=== PATIENT | female | born 1990 | race Caucasian/White ===

== ENCOUNTER 2018-03-23 20:08 | Emergency (ER) | payer MEDICAID ==
[2018-03-23 20:21] VITALS: TEMP 98.8
[2018-03-23] MEDS ORDERED: Sodium Chloride 0.9% 1,000 ML ONE (20:39)
--- NOTE | 2018-03-23 20:47 | C.PDOC ---
History Of Present Illness 27 year old female who is 3 months presents to the ER with a complaint of dysuria and suprapubic discomfort that began earlier today, now with left flank pain. Patient states she feels warm but has not had any fever. She reports her urine today was dark and cloudy with a foul odor. Denies nausea, vomiting, vaginal bleeding, or vaginal discharge. Time Seen by Provider: 03/23/18 20:25 Chief Complaint (Nursing): Female Genitourinary History Per: Patient History/Exam Limitations: no limitations Onset/Duration Of Symptoms: Hrs Current Symptoms Are (Timing): Still Present Quality Of Discomfort: Burning Associated Symptoms: Urinary Symptoms. denies: Nausea, Vomiting, Other ( vaginal discharge) Alleviating Factors: None Recent travel outside of the [place]: No Abnormal Vaginal Bleeding: No Past Medical History Reviewed: Historical Data, Nursing Documentation, Vital Signs Vital Signs: Last Vital Signs Temp 98.8 F 03/23/18 23:11 Pulse 84 03/23/18 23:11 Resp 14 03/23/18 23:11 BP 100/63 03/23/18 23:11 Pulse Ox 96 03/23/18 23:48 - Medical History PMH: Denies: Chronic Kidney Disease Family History: States: Unknown Family Hx - Social History Hx Tobacco Use: No Hx Alcohol Use: No Hx Substance Use: No - Immunization History Hx Tetanus Toxoid Vaccination: No Hx Influenza Vaccination: No Review Of Systems Constitutional: Negative for: Fever Gastrointestinal: Negative for: Nausea, Vomiting Genitourinary: Positive for: Dysuria, Other (Suprapubic discomfort) Musculoskeletal: Positive for: Back Pain (Left flank) Physical Exam - Physical Exam Appears: Non-toxic Skin: Normal Color, Warm, Dry Head: Atraumatic, Normacephalic Eye(s): bilateral: Normal Inspection Oral Mucosa: Moist Chest: Symmetrical, No Tenderness Cardiovascular: Rhythm Regular Respiratory: Normal Breath Sounds, No Rales, No Rhonchi, No Wheezing Gastrointestinal/Abdominal: Soft, Tenderness (Mild suprapubic discomfort), No Guarding, No Rebound Back: No CVA Tenderness Neurological/Psych: Oriented x3, Normal Speech ED Course And Treatment - Laboratory Results Result Diagrams: 03/23/18 20:48 03/23/18 20:48 Lab Interpretation: No Acute Changes O2 Sat by Pulse Oximetry: 96 (Room air) Pulse Ox Interpretation: Normal - CT Scan/US US Other Rad Studies (CT/US): Read By Radiologist, Radiology Report Reviewed CT/US Interpretation: EXAM: US After First Trimester, Transabdominal. CLINICAL HISTORY: 27 years old, female; Pain; complicated by abdominal or pelvic pain; Generalized. abdominal pain; Second trimester; Gestational age or lmp: [id number]; ; Additional info: Abd. pain. TECHNIQUE: Real-time transabdominal obstetrical ultrasound of the maternal pelvis and a second or third. trimester with image documentation. COMPARISON: No relevant prior studies available. FINDINGS: Fetus: Single live intrauterine gestation. Heart rate: heart rate of 168 beats per minute. Presentation: Breech. Placenta: Anterior placenta. No placenta previa or abruption. Amniotic fluid: Normal. Anatomy: No gross anomaly is appreciated. BIOMETRICS. Gestational age: Estimated gestational age of 19 weeks 2 days by measurements. KULWANT: 08/15/2018 by ultrasound. EFW: 264 g. MATERNAL: Uterus: Unremarkable. No myometrial mass. Cervix: No cervical dilatation or effacement. Free fluid: No free fluid. IMPRESSION: 1. Single live intrauterine gestation. Progress Note: Blood work, urinalysis, and US ordered. Reevaluation Time: 23:50 Reassessment Condition: Improved (Patient remains comfortable in ED.) Disposition Counseled Patient/Family Regarding: Studies Performed, Diagnosis, Need For Followup, Rx Given - Disposition Referrals: [facility] [Outside] Disposition: HOME/ ROUTINE Disposition Time: 23:51 Condition: STABLE Prescriptions: Nitrofurantoin Macrocrystals [Macrobid] 1 cap PO BID #14 cap Instructions: Urinary Tract Infections in Adults Forms: [facility] ([place]i) - Clinical Impression Clinical Impression: UTI (urinary tract infection) during - Scribe Statement The provider has reviewed the documentation as recorded by the Scribe Yuri Wilson All medical record entries made by the Scribe were at my direction and personally dictated by me. I have reviewed the chart and agree that the record accurately reflects my personal performance of the history, physical exam, medical decision making, and the department course for this patient. I have also personally directed, reviewed, and agree with the discharge instructions and disposition.
[2018-03-23 20:51] LABS: BASO % 0.4 % (0.0-2.0); EOS # 0.1 K/uL (0.0-0.7); LYMPH # 1.3 K/uL (1.0-4.3); LYMPH % 11.7 % (20.0-40.0); MEAN CELL VOLUME 89.8 fL (81.0-99.0); MEAN CORPUSCULAR HEMOGLOBIN 30.9 pg (27.0-31.0); MEAN CORPUSCULAR HGB CONC 34.4 g/dL (33.0-37.0); MEAN PLATELET VOLUME 10.2 fL (7.2-11.7); MONO # 0.6 K/uL (0.0-0.8); MONO % 5.8 % (0.0-10.0); NEUT # 8.7 K/uL (1.8-7.0); NEUT % 81.1 % (50.0-75.0); RBC 3.9 Mil/uL (3.80-5.20); RED CELL DISTRIBUTION WIDTH 12.6 % (11.5-14.5); WHITE BLOOD COUNT 10.8 K/uL (4.8-10.8)
[2018-03-23 20:54] LABS: SQUAMOUS EPITHIAL 2 /hpf (0-5); URINE BACTERIA RARE (<OCC); URINE BILIRUBIN NEGATIVE (NEGATIVE); URINE BLOOD NEGATIVE (NEGATIVE); URINE CLARITY Clear (Clear); URINE COLOR Yellow (YELLOW); URINE GLUCOSE (UA) NORMAL (Normal); URINE LEUKOCYTE ESTERASE 1+ Leu/uL (Negative); URINE PROTEIN NEGATIVE (NEGATIVE); URINE UROBILINOGEN NORMAL mg/dL (0.2-1.0)
[2018-03-23 21:10] LABS: ALB/GLOB RATIO 1.5 (1.0-2.1); ALBUMIN 4.3 g/dL (3.5-5.0); ALT/SGPT 66 U/L (9-52); AST/SGOT 37 U/L (14-36); BLOOD UREA NITROGEN 2 mg/dL (7-17); CALCIUM 9.4 mg/dl (8.6-10.4); GFR AFRICAN-AMERICAN > 60; GFR NON-AFRICAN AMERICAN > 60
[2018-03-23 23:11] VITALS: BP 100/63; PULSE 84; RESP 14
[2018-03-23 23:49] VITALS: O2SAT 96
--- NOTE | 2018-03-24 13:47 | US ---
Date of service: 03/23/2018 PROCEDURE: OB Pelvic Ultrasound HISTORY: abd pain LMP: 11/02/2017 suggesting estimated gestational age of 20 weeks 2 days currently. COMPARISON: None available. FINDINGS: UTERUS: Gestational sac: A single viable intrauterine gestation is identified in breech lie with an anterior fundal placenta and no evidence of placental abruption or previa. cardiac tears recorded 160 beats per minute indicating viability. Estimated gestational age by ultrasound biometry is 19 weeks 2 days which is concordant with LMP derived dates. The following mean parameters were obtained: Biparietal diameter 4.6 cm corresponds to 19 weeks 6 days. Head circumference 17.1 cm corresponds to 19 weeks 5 days. Abdominal circumference 13.9 cm corresponds 19 weeks 2 days. Femur length 2.7 cm correspond 18 weeks 2 days. HC/AC ratio was 1.23 which is in the upper limits of normal range. Estimated weight is 264.33 g or 9 oz. Estimated date of delivery 08/15/2018. A limited anatomical survey was performed identified the urinary bladder, a normal-appearing abdominal umbilical cord insertion, three-vessel umbilical cord, and no prominent hydronephrosis. For chamber heart images not submitted and the spine is not adequately capture due to lie. No images of the kidneys is submitted. CERVIX: Measures 3.3 cm. Long and closed. No cervical abnormality seen. RIGHT OVARY: Not identified. LEFT OVARY: Not identified. FREE FLUID: None. OTHER FINDINGS: None. IMPRESSION: A single viable intrauterine gestation is identified in breech lie with an average ultrasonic age of 19 weeks 2 days which is concordant with LMP derived dates of 20 weeks 2 days. cardiac activity 1 6 0 beats per minute. No placental abruption or previa. A very limited anatomical survey was performed with a proper survey available electively on follow-up ultrasound if clinically warranted.
== END 2018-03-24 00:10 | disposition home or self-care (01) ==
LOC: C.ER 20:08
DX: O23.42 Unspecified infection of urinary tract in pregnancy, second trimester (principal); Z3A.19 19 weeks gestation of pregnancy